=== PATIENT | male | born 1970 | race African-American/Black ===

== ENCOUNTER 2018-03-10 07:08 | Emergency (ER) | payer OTHER ==
[~2018-03-10] VITALS: Ht 172.7 cm; Wt 73.0 kg
[2018-03-10 08:19] LABS: BASOPHILS % 0.6 % (0.0-2.0); EOSINOPHILS % 9.4 % (0.0-5.0); HEMOGLOBIN. 13.6 g/dL (14.0-18.0); LYMPHOCYTES % 32.3 % (20.0-50.0); MEAN CORPUSCULAR HEMOGLOBIN 26.6 pg (28.0-32.0); MEAN CORPUSCULAR VOLUME 80.2 fL (80.0-94.0); MEAN PLATELET VOLUME 7.9 fl (7.4-10.4); MONOCYTES % 9.1 % (2.0-8.0); NEUTROPHILS % 48.6 % (40.0-76.0); PLATELET 220 x1000/uL (130-400); RED BLOOD CELL COUNT 5.11 mill/uL (4.7-6.1); RED CELL DISTRIBUTION WIDTH 13.7 % (11.6-14.6)
[2018-03-10 08:39] LABS: CHLORIDE 105 mEq/L (98-107)
[2018-03-10 11:50] VITALS: BP 136/73
== END 2018-03-11 10:19 | disposition home or self-care (01) ==
LOC: ER 07:19
DX: R55 Syncope and collapse (principal)
CPT/HCPCS: 36415; 70450; 80048; 84484; 85025; 93005; 99285; Z7610